=== PATIENT | male | born 1985 | race Caucasian/White ===

== ENCOUNTER → 2017-01-11 | Outpatient (REF) | LOC: WSOH 15:40 | DX: Z11.1 Encounter for screening for respiratory tuberculosis (principal) ==

== ENCOUNTER → 2017-01-18 | Outpatient (REF) | LOC: WSOH 15:31 | DX: Z11.1 Encounter for screening for respiratory tuberculosis (principal) ==

== ENCOUNTER → 2021-01-27 | Outpatient (CLI) | payer OTHER | LOC: COL.LAB 09:39 | DX: Z02.0 Encounter for examination for admission to educational institution (principal) ==